=== PATIENT | female | born 1960 | race African-American/Black ===

== ENCOUNTER 2016-11-27 13:22 | Emergency (ER) | payer MEDICAID ==
[~2016-11-27] VITALS: Ht 157.5 cm; Wt 119.3 kg
[~2016-11-27 13:22] MED LIST: ALBUAER3 IN; ASP81EC PO; BACL20TA; CHOL10006; FLUT110A INH; Furosemide BC; GABA300C8; IMIP50TA27; Insulin Detemir SC; LORA-205; LORA10CA7; METO50TA7 PO; MORP1CAP31; SIMV-13; ZOLP10TA6
[2016-11-27 13:29] VITALS: BP 189/77
[2016-11-27 15:28] LABS: Basophils # (auto) 0 uL; Basophils % (auto) 0.5 % (0.0-2.0); Eosinophils # (auto) 0.1 uL; Hematocrit 39.8 % (36.0-46.0); Hemoglobin 12.8 g/dL (12.2-16.2); Lymphocytes % (auto) 45.8 % (10.0-50.0); Mean Corpuscular Hgb Conc. 32.1 g/dL (32.0-36.0); Mean Corpuscular Volume 84.1 fL (80.0-100.0); Mean Platelet Volume 9.9 fL (7.4-10.4); Monocytes # (auto) 0.6 uL; Neutrophils # (auto) 2.8 uL; Neutrophils % (auto) 42.7 % (37.0-80.0); Platelet Count (auto) 255 10^3/uL (140-450); Red Cell Distribution Width 14.3 % (11.6-16.0); White Blood Cell 6.5 10^3/uL (4.4-10.8)
[2016-11-27 15:33] LABS: INR 1.07 (0.9-1.15); Partial Thromboplastin Time 27.7 sec (22.64-33.71)
[2016-11-27 15:40] LABS: Albumin 3.2 g/dL (3.4-5.0); Calcium 9.5 mg/dL (8.5-10.1); Potassium 4.1 mmol/L (3.5-5.1)
[2016-11-27 15:43] LABS: Bilirubin, Total 0.9 mg/dL (0.2-1.0)
== END 2016-11-27 21:00 | disposition left against medical advice (07) ==
LOC: ER 13:23
DX: R51 Headache (principal); M25.562 Pain in left knee; Z53.21 Procedure and treatment not carried out due to patient leaving prior to being seen by health care provider; W18.39XA Other fall on same level, initial encounter; Y93.89 Activity, other specified; Y99.8 Other external cause status; Y92.89 Other specified places as the place of occurrence of the external cause
CPT/HCPCS: 36415; 70450; 72125; 73562; 80053; 85025; 85610; 85730; 93005

== ENCOUNTER 2017-05-06 16:25 | Emergency (ER) | payer MEDICAID ==
[~2017-05-06] VITALS: Ht 157.5 cm; Wt 115.2 kg
[~2017-05-06 16:25] MED LIST changes: +GABA-497; -GABA300C8
[2017-05-06 16:35] VITALS: BP 112/63
[2017-05-06] MEDS ORDERED: KETOROLAC TROMETH 60MG/2ML VIAL IM ONE (17:45)
== END 2017-05-06 18:13 | disposition home or self-care (01) ==
LOC: ER 16:29
DX: G89.29 Other chronic pain (principal); M54.40 Lumbago with sciatica, unspecified side; D17.21 Benign lipomatous neoplasm of skin and subcutaneous tissue of right arm; I11.0 Hypertensive heart disease with heart failure; I50.9 Heart failure, unspecified; J44.9 Chronic obstructive pulmonary disease, unspecified; E78.5 Hyperlipidemia, unspecified; Z90.49 Acquired absence of other specified parts of digestive tract; Z79.82 Long term (current) use of aspirin; Z79.4 Long term (current) use of insulin
CPT/HCPCS: 96372; 99283; J1885

== ENCOUNTER 2018-05-09 14:58 | Emergency (ER) | payer MEDICAID ==
[~2018-05-09] VITALS: Ht 157.5 cm; Wt 112.5 kg
[~2018-05-09 14:58] MED LIST changes: -GABA-497; +GABA300C10; +MET5XLT PO; -METO50TA7 PO
[2018-05-09] MEDS ORDERED: cloNIDine HCL 0.1 MG TAB PO ONE (16:15)
[2018-05-09] MEDS ORDERED: HYDROcodone-ACET 10/325MG TAB PO ONE (17:45)
[2018-05-09 17:59] LABS: Urine Bacteria FEW /hpf (None Seen); Urine Blood 2+ /uL (Negative); Urine Hyaline Cast MOD /lpf (0 - 2); Urine Specific Gravity 1.006 (1.001-1.035); Urine WBC 6 /hpf (0 - 5)
[2018-05-09 18:00] LABS: Basophils # (auto) 0.1 uL; Basophils % (auto) 0.8 % (0.0-2.0); Eosinophils # (auto) 0.4 uL; Eosinophils % (auto) 4.7 % (0.0-7.0); Hematocrit 42.1 % (36.0-46.0); Hemoglobin 13.7 g/dL (12.2-16.2); Lymphocytes % (auto) 48.1 % (10.0-50.0); Mean Corpuscular Hemoglobin 27.2 pg (28.0-32.0); Mean Corpuscular Hgb Conc. 32.4 g/dL (32.0-36.0); Mean Corpuscular Volume 83.9 fL (80.0-100.0); Monocytes # (auto) 0.8 uL; Monocytes % (auto) 9.8 % (0.0-12.0); Neutrophils # (auto) 3.1 uL; Neutrophils % (auto) 36.6 % (37.0-80.0); Nucleated Red Blood Cells % 0.1 %; Platelet Count (auto) 272 10^3/uL (140-450); Red Blood Cells 5.02 10^6/uL (4.0-5.20); Red Cell Distribution Width 13.2 % (11.8-14.3); White Blood Cell 8.4 10^3/uL (4.4-10.8)
[2018-05-09 18:21] LABS: Albumin 3.3 g/dL (3.4-5.0); BUN/Creatinine Ratio 9.8; Bilirubin, Total 1.1 mg/dL (0.2-1.0); Calcium 9.8 mg/dL (8.5-10.1); Potassium 3.9 mmol/L (3.5-5.1); Total Protein 9.3 g/dL (6.4-8.2)
[2018-05-09 19:02] VITALS: BP 112/60
== END 2018-05-09 19:03 | disposition home or self-care (01) ==
LOC: ER 15:03
DX: N39.0 Urinary tract infection, site not specified (principal); I11.0 Hypertensive heart disease with heart failure; I50.9 Heart failure, unspecified; J44.9 Chronic obstructive pulmonary disease, unspecified; E11.9 Type 2 diabetes mellitus without complications; E78.5 Hyperlipidemia, unspecified; I25.2 Old myocardial infarction; Z98.51 Tubal ligation status; Z90.49 Acquired absence of other specified parts of digestive tract; Z86.73 Personal history of transient ischemic attack (TIA), and cerebral infarction without residual deficits
CPT/HCPCS: 36415; 80053; 81001; 85025; 94761

== ENCOUNTER 2018-08-02 13:09 | Inpatient (IN) | payer MEDICAID ==
[~2018-08-02] VITALS: Ht 157.5 cm; Wt 102.2 kg
[~2018-08-02 13:09] MED LIST changes: +ASPI81TA27 PO; +ATOR10TA52 PO; +ATOR1TAB PO; -BACL20TA; -CHOL10006; +CHOL20007 PO; +CYCL1TAB18 PO; +FLU220IH INH; +FURO40TA4 PO; -Furosemide BC; +GABA-339 PO; -GABA300C10; -IMIP50TA27; +INSLANTI SC; +INSREG3 SC; -Insulin Detemir SC; +LISI40TA PO; -LORA-205; -LORA10CA7; +METO-158 PO; +MORP15TA PO; -MORP1CAP31; +MORP60TA25 PO; +NITR0.4S29 SL; +OMEG306C OR; +PANT40TA2 PO; +POTA10TA51 PO; +SENN1TAB14 PO; -SIMV-13; +SUCR1TAB PO; -ZOLP10TA6
[2018-08-02 14:50] LABS: Eosinophils # (auto) 0 uL; Hematocrit 42.7 % (36.0-46.0); Lymphocytes # (auto) 2.7 uL; Monocytes # (auto) 0.7 uL; Neutrophils # (auto) 3.7 uL
[2018-08-02 14:52] LABS: Basophils # (auto) 0 uL; Basophils % (auto) 0.7 % (0.0-2.0); Eosinophils % (auto) 0.1 % (0.0-7.0); Hemoglobin 13.8 g/dL (12.2-16.2); Lymphocytes % (auto) 37.7 % (10.0-50.0); Mean Corpuscular Hemoglobin 26.8 pg (28.0-32.0); Mean Corpuscular Hgb Conc. 32.3 g/dL (32.0-36.0); Mean Corpuscular Volume 82.9 fL (80.0-100.0); Monocytes % (auto) 9.4 % (0.0-12.0); Neutrophils % (auto) 52.1 % (37.0-80.0); Nucleated Red Blood Cells % 0.1 %; Platelet Count (auto) 263 10^3/uL (140-450); Red Blood Cells 5.15 10^6/uL (4.0-5.20); Red Cell Distribution Width 13.9 % (11.8-14.3); White Blood Cell 7.2 10^3/uL (4.4-10.8)
[2018-08-02] MEDS ORDERED: cefTRIAXone 1GM/50ML D5W 50 ML IV ONE (15:00)
[2018-08-02 15:06] LABS: Albumin 3.3 g/dL (3.4-5.0); BUN/Creatinine Ratio 9.7; Calcium 9.7 mg/dL (8.5-10.1); Potassium 3.3 mmol/L (3.5-5.1)
[2018-08-02 15:09] LABS: Bilirubin, Total 1.2 mg/dL (0.2-1.0); Total Protein 9.3 g/dL (6.4-8.2)
[2018-08-02] MEDS ORDERED: ONDANSETRON HCL 4 MG/2 ML VIAL ONE (15:43)
[2018-08-02] MEDS ORDERED: ONDANSETRON HCL 4 MG/2 ML VIAL IV ONE ×2 (15:45→18:00)
[2018-08-02] MEDS ORDERED: SODIUM CHLORIDE 0.9% 1,000 ML IV ONE ×2 (15:45→17:47)
[2018-08-02] MEDS ORDERED: POTASSIUM EFFERVESENT TAB 25 MEQ PO ONE (16:30)
[2018-08-02] MEDS ORDERED: DIPHENOXYLATE W/ATROPINE 2.5 MG TAB PO ONE (18:00)
[2018-08-02] MEDS ORDERED: VANCOMYCIN PER PHARMACY 0 MG IV SCH (18:30)
[2018-08-02] MEDS ORDERED: PANTOPRAZOLE 40 MG/10 ML VIAL IV ONE (18:30)
[2018-08-02] MEDS ORDERED: DEXTROSE (50%) 50ML SYRG IV PRN (18:30)
[2018-08-02] MEDS ORDERED: FAMOTIDINE (10MG/ML) 2ML VL IV ONE (18:30)
[2018-08-02] MEDS ORDERED: ACETAMINOPHEN 325 MG TAB PO PRN (18:45)
[2018-08-02] MEDS ORDERED: HYDROcodone-ACET 5/325MG TAB PO PRN (18:45)
[2018-08-02] MEDS ORDERED: SODIUM CHLORIDE 0.9% 3,000 ML IV ONE (18:45)
[2018-08-02] MEDS ORDERED: NITROGLYCERIN 0.4 MG SL TAB SL PRN (18:45)
[2018-08-02] MEDS ORDERED: MORPHINE SULFATE 4 MG/ML SYR/VIAL IV PRN (18:45)
[2018-08-02] MEDS ORDERED: TEMAZEPAM 15 MG CAP PO PRN (18:45)
[2018-08-02 19:41] LABS: Lactic Acid w/Reflex 2.8 mmol/L (0.4-2.0)
[2018-08-02] MEDS ORDERED: VANCOMYCIN 1GM/250ML 250 ML IV SCH (20:00)
[2018-08-02 20:07] VITALS: BP 152/79
[2018-08-02] MEDS: MORPHINE SULFATE 4 MG/ML SYR/VIAL IV PRN (20:28)
[2018-08-02] MEDS: SODIUM CHLORIDE 0.9% 1,000 ML IV SCH (20:28)
[2018-08-02 21:26] LABS: Urine Bacteria NONE SEEN /hpf (None Seen); Urine Blood Negative /uL (Negative); Urine Hyaline Cast FEW /lpf (0 - 2); Urine Specific Gravity 1.011 (1.001-1.035); Urine WBC 5 /hpf (0 - 5)
[2018-08-02] MEDS: IPRATROPIUM BROM 0.5 MG/2.5ML INH SOL NEB SCH (22:06)
[2018-08-02] MEDS: ALBUTEROL SULF 2.5 MG/0.5ML(0.5%) NEB SOLN NEB SCH (22:06)
[2018-08-02 22:10] VITALS: BP 130/69
[2018-08-02] MEDS: ACCU-CHEK COMFORT CURVE STRIP VI SCH (22:20)
[2018-08-02] MEDS: INSULIN LANTUS (GLARGINE) 1 /0.01ml (100units/ml) SC SCH (22:21)
[2018-08-02] MEDS: InsuLIN REG 1unit/0.01ml Soln (100units/ml) SC SCH (22:27)
[2018-08-03] MEDS: MORPHINE SULFATE 4 MG/ML SYR/VIAL IV PRN ×5 (01:44→21:27)
[2018-08-03] MEDS: IPRATROPIUM BROM 0.5 MG/2.5ML INH SOL NEB SCH ×6 (02:09→21:56)
[2018-08-03] MEDS: ALBUTEROL SULF 2.5 MG/0.5ML(0.5%) NEB SOLN NEB SCH ×6 (02:09→21:55)
[2018-08-03] MEDS: SODIUM CHLORIDE 0.9% 1,000 ML IV SCH ×3 (02:56→20:00)
[2018-08-03 05:00] VITALS: BP 127/78
[2018-08-03 05:45] LABS: Basophils # (auto) 0 uL; Basophils % (auto) 0.3 % (0.0-2.0); Eosinophils # (auto) 0.1 uL; Eosinophils % (auto) 1.1 % (0.0-7.0); Hematocrit 36.1 % (36.0-46.0); Hemoglobin 11.7 g/dL (12.2-16.2); Lymphocytes # (auto) 5.1 uL; Lymphocytes % (auto) 51.6 % (10.0-50.0); Mean Corpuscular Hemoglobin 27.2 pg (28.0-32.0); Mean Corpuscular Hgb Conc. 32.4 g/dL (32.0-36.0); Monocytes # (auto) 1.2 uL; Neutrophils # (auto) 3.4 uL; Platelet Count (auto) 221 10^3/uL (140-450); Red Blood Cells 4.31 10^6/uL (4.0-5.20); Red Cell Distribution Width 13.5 % (11.8-14.3); White Blood Cell 9.8 10^3/uL (4.4-10.8)
[2018-08-03] MEDS: INSULIN LISPRO (HUMAN) 100 UNITS/ML ML SC SCH ×2 (05:50→06:28)
[2018-08-03 06:00] LABS: Albumin 2.6 g/dL (3.4-5.0); Calcium 8.3 mg/dL (8.5-10.1)
[2018-08-03 06:02] LABS: BUN/Creatinine Ratio 9.5
[2018-08-03 06:07] LABS: Bilirubin, Total 0.9 mg/dL (0.2-1.0); Total Protein 7.3 g/dL (6.4-8.2)
[2018-08-03 06:08] LABS: Lactic Acid w/Reflex 2.1 mmol/L (0.4-2.0)
[2018-08-03] MEDS: ACCU-CHEK COMFORT CURVE STRIP VI SCH ×4 (06:13→22:34)
[2018-08-03] MEDS: InsuLIN REG 1unit/0.01ml Soln (100units/ml) SC SCH ×4 (06:13→17:00)
[2018-08-03 06:17] LABS: Potassium 2.6 mmol/L (3.5-5.1)
[2018-08-03] MEDS ORDERED: POTASSIUM CHL 20 Meq TABLET PO ONE ×2 (06:30→16:00)
[2018-08-03] MEDS: ONDANSETRON HCL 4 MG/2 ML VIAL IV PRN ×2 (07:56→14:55)
[2018-08-03 09:00] VITALS: BP 131/72
[2018-08-03] MEDS: cefTRIAXone 1GM/50ML D5W 50 ML IV SCH (09:54)
[2018-08-03] MEDS: INSULIN GLARGINE SC SCH (09:54)
[2018-08-03] MEDS: MULTIPLE VITAMIN TAB PO SCH (09:54)
[2018-08-03] MEDS ORDERED: PANTOPRAZOLE 40 MG/10 ML VIAL IV SCH ×2 (10:00→22:00)
[2018-08-03 13:00] VITALS: BP 121/80
[2018-08-03] MEDS: VANCOMYCIN 1,250 MG in D5W 5% 250 ML IV SCH (14:54)
[2018-08-03 17:00] VITALS: BP 155/75
[2018-08-03 22:00] VITALS: BP 162/71
[2018-08-03] MEDS ORDERED: FAMOTIDINE (10MG/ML) 2ML VL IV SCH (22:00)
[2018-08-03] MEDS: INSULIN LANTUS (GLARGINE) 1 /0.01ml (100units/ml) SC SCH (22:34)
[2018-08-04] MEDS: ALBUTEROL SULF 2.5 MG/0.5ML(0.5%) NEB SOLN NEB SCH ×6 (02:09→22:29)
[2018-08-04] MEDS: IPRATROPIUM BROM 0.5 MG/2.5ML INH SOL NEB SCH ×6 (02:09→22:29)
[2018-08-04] MEDS: SODIUM CHLORIDE 0.9% 1,000 ML IV SCH ×3 (04:00→20:36)
[2018-08-04 05:00] VITALS: BP 149/81
[2018-08-04] MEDS: MORPHINE SULFATE 4 MG/ML SYR/VIAL IV PRN ×3 (05:05→20:33)
[2018-08-04 05:11] LABS: Basophils # (auto) 0 uL; Basophils % (auto) 0.7 % (0.0-2.0); Eosinophils # (auto) 0.2 uL; Eosinophils % (auto) 3.9 % (0.0-7.0); Hematocrit 39.3 % (36.0-46.0); Hemoglobin 12.6 g/dL (12.2-16.2); Lymphocytes # (auto) 2.4 uL; Mean Corpuscular Volume 84.3 fL (80.0-100.0); Monocytes # (auto) 0.9 uL; Monocytes % (auto) 14.3 % (0.0-12.0); Neutrophils # (auto) 2.5 uL; Neutrophils % (auto) 42.1 % (37.0-80.0); Platelet Count (auto) 218 10^3/uL (140-450); Red Blood Cells 4.66 10^6/uL (4.0-5.20); Red Cell Distribution Width 13.8 % (11.8-14.3)
[2018-08-04 05:30] LABS: BUN/Creatinine Ratio 4.1; Calcium 8.9 mg/dL (8.5-10.1); INR 1.01 (0.9-1.15); Partial Thromboplastin Time 28.8 sec (23.78-33.04); Potassium 3.4 mmol/L (3.5-5.1); Prothrombin Time 10.8 sec (9.27-12.13)
[2018-08-04] MEDS: InsuLIN REG 1unit/0.01ml Soln (100units/ml) SC SCH ×4 (05:50→22:00)
[2018-08-04] MEDS: ACCU-CHEK COMFORT CURVE STRIP VI SCH ×4 (05:50→22:30)
[2018-08-04 06:44] LABS: Phosphorus 1.9 mg/dL (2.5-4.90)
[2018-08-04 08:26] VITALS: BP 124/84
[2018-08-04] MEDS ORDERED: ePHEDrine SULFATE 50 MG/ML AMP IV PRN (08:45)
[2018-08-04] MEDS ORDERED: ONDANSETRON HCL 4 MG/2 ML VIAL IV ONE (08:45)
[2018-08-04] MEDS ORDERED: HYDROmorphone HCL 2 MG/ML VL IV PRN (08:45)
[2018-08-04] MEDS ORDERED: MIDAZOLAM HCL 1MG/1ML-2 ML VIAL IV PRN (08:45)
[2018-08-04] MEDS ORDERED: LABETALOL HCL 5 MG/ML 4ML SYRINGE IV PRN (08:45)
[2018-08-04] MEDS ORDERED: ACCU-CHEK COMFORT CURVE STRIP VI ONE (08:45)
[2018-08-04] MEDS ORDERED: KETOROLAC TROMETH 30 MG/ML 1ML VIAL IV ONE (08:45)
[2018-08-04] MEDS ORDERED: MIDAZOLAM HCL 1MG/1ML-2 ML VIAL ONE (08:48)
[2018-08-04] MEDS ORDERED: fentaNYL CITRATE 100 MCG/2 ML VL ONE (08:48)
[2018-08-04] MEDS ORDERED: DEXAMETHASONE SOD PHOS 10MG/1ML VIAL INJ ONE (08:49)
[2018-08-04] MEDS ORDERED: PROPOFOL 10 MG/ML 20 ML IV ONE (08:50)
[2018-08-04] MEDS: VANCOMYCIN 1,250 MG in D5W 5% 250 ML IV SCH (09:40)
[2018-08-04] MEDS ORDERED: MORPHINE SULFATE 4 MG/ML SYR/VIAL IV ONE (10:00)
[2018-08-04] MEDS: INSULIN GLARGINE SC SCH (10:00)
[2018-08-04] MEDS: PANTOPRAZOLE 40 MG TAB PO SCH ×2 (10:12→22:00)
[2018-08-04] MEDS: MULTIPLE VITAMIN TAB PO SCH (10:12)
[2018-08-04 11:26] VITALS: BP 133/78
[2018-08-04] MEDS: cefTRIAXone 1GM/50ML D5W 50 ML IV SCH (11:33)
[2018-08-04] MEDS ORDERED: PROMETHAZINE HCL 25 MG/ML 1ML ONE (16:19)
[2018-08-04 17:16] VITALS: BP 131/69
[2018-08-04 21:46] VITALS: BP 101/64
[2018-08-04] MEDS: INSULIN LANTUS (GLARGINE) 1 /0.01ml (100units/ml) SC SCH (22:00)
[2018-08-05] MEDS: MORPHINE SULFATE 4 MG/ML SYR/VIAL IV PRN ×3 (01:05→17:06)
[2018-08-05] MEDS: HYOSCYAMINE SULF 0.125 MG ODT TAB PO PRN ×2 (01:05→17:06)
[2018-08-05] MEDS: IPRATROPIUM BROM 0.5 MG/2.5ML INH SOL NEB SCH ×5 (02:00→19:14)
[2018-08-05] MEDS: ALBUTEROL SULF 2.5 MG/0.5ML(0.5%) NEB SOLN NEB SCH ×5 (02:00→19:14)
[2018-08-05 02:28] LABS: Basophils # (auto) 0.1 uL; Eosinophils # (auto) 0 uL
[2018-08-05 02:34] LABS: Basophils % (auto) 0.7 % (0.0-2.0); Hematocrit 37.2 % (36.0-46.0); Lymphocytes # (auto) 3.1 uL; Lymphocytes % (auto) 23.3 % (10.0-50.0); Mean Corpuscular Hemoglobin 26.4 pg (28.0-32.0); Mean Corpuscular Hgb Conc. 32.2 g/dL (32.0-36.0); Mean Corpuscular Volume 81.8 fL (80.0-100.0); Monocytes # (auto) 1.5 uL; Monocytes % (auto) 11.4 % (0.0-12.0); Neutrophils # (auto) 8.7 uL; Neutrophils % (auto) 64.6 % (37.0-80.0); Nucleated Red Blood Cells % 0.2 %; Platelet Count (auto) 218 10^3/uL (140-450); Red Blood Cells 4.55 10^6/uL (4.0-5.20); Red Cell Distribution Width 13.7 % (11.8-14.3); White Blood Cell 13.5 10^3/uL (4.4-10.8)
[2018-08-05 03:03] LABS: BUN/Creatinine Ratio 6.5; Calcium 8.9 mg/dL (8.5-10.1); Potassium 3.9 mmol/L (3.5-5.1)
[2018-08-05] MEDS: SODIUM CHLORIDE 0.9% 1,000 ML IV SCH ×2 (03:20→13:16)
[2018-08-05] MEDS: INSULIN LISPRO (HUMAN) 100 UNITS/ML ML SC SCH (06:18)
[2018-08-05] MEDS: ACCU-CHEK COMFORT CURVE STRIP VI SCH ×3 (06:19→17:06)
[2018-08-05] MEDS: InsuLIN REG 1unit/0.01ml Soln (100units/ml) SC SCH ×3 (06:19→17:14)
[2018-08-05 08:54] VITALS: BP 124/69
[2018-08-05] MEDS: MULTIPLE VITAMIN TAB PO SCH (09:52)
[2018-08-05] MEDS: PANTOPRAZOLE 40 MG TAB PO SCH (09:52)
[2018-08-05] MEDS: INSULIN GLARGINE SC SCH (09:52)
[2018-08-05] MEDS: PROMETHAZINE HCL 25 MG/ML 1ML IV PRN ×2 (09:53→17:06)
[2018-08-05 12:54] VITALS: BP 133/70
[2018-08-05 16:42] VITALS: BP 112/84
[2018-08-05 18:53] VITALS: BP 112/84
== END 2018-08-05 20:30 | disposition home health service (06) | DRG 241 ==
LOC: ER 13:14 → MERGE 18:39 → TELE 18:39 → TELE-WESTW 21:52
PROVIDERS: ADMIT Internal Medicine; ATTEND Internal Medicine
PROC: 0DB68ZX Excision of Stomach, Via Natural or Artificial Opening Endoscopic, Diagnostic (ICD-10-PCS; principal; 2018-08-04 08:28)
DX: K29.00 Acute gastritis without bleeding (principal); N17.0 Acute kidney failure with tubular necrosis; J44.0 Chronic obstructive pulmonary disease with (acute) lower respiratory infection; E11.21 Type 2 diabetes mellitus with diabetic nephropathy; J45.901 Unspecified asthma with (acute) exacerbation; E66.01 Morbid (severe) obesity due to excess calories; E87.1 Hypo-osmolality and hyponatremia; I50.9 Heart failure, unspecified; I13.0 Hypertensive heart and chronic kidney disease with heart failure and stage 1 through stage 4 chronic kidney disease, or unspecified chronic kidney disease; N18.3 Chronic kidney disease, stage 3 (moderate); J44.1 Chronic obstructive pulmonary disease with (acute) exacerbation; K52.9 Noninfective gastroenteritis and colitis, unspecified; E11.22 Type 2 diabetes mellitus with diabetic chronic kidney disease; E87.6 Hypokalemia; E78.5 Hyperlipidemia, unspecified; J20.9 Acute bronchitis, unspecified; E86.0 Dehydration; K57.30 Diverticulosis of large intestine without perforation or abscess without bleeding; Z90.49 Acquired absence of other specified parts of digestive tract; Z98.51 Tubal ligation status; Z79.899 Other long term (current) drug therapy; Z79.82 Long term (current) use of aspirin; Z79.4 Long term (current) use of insulin; Z68.41 Body mass index [BMI] 40.0-44.9, adult
CPT/HCPCS: 36415; 71046; 74176; 80048; 80053; 80202; 81001; 82962; 83036; 83605; 83735; 83880; 84100; 84132; 84443; 85025; 85610; 85730; 86850; 86900; 86901; 87040; 87086; 87804; 93005; 94640; 94660; 94761; 96361; 96365; 96375; C9113; G0378; J0696; J1100; J1815; J1885; J2250; J2405; J2704; J3490; J7060

== ENCOUNTER 2019-10-25 11:06 | Day surgery (SDC) | payer MEDICAID ==
[~2019-10-25] VITALS: Ht 157.5 cm; Wt 125.6 kg
[~2019-10-25 11:06] MED LIST changes: -ALBUAER3 IN; -ASP81EC PO; +ASPI-404 PO; -ASPI81TA27 PO; -ATOR10TA52 PO; -CHOL20007 PO; -FLUT110A INH; +IBUP600T27 PO; -INSLANTI SC; -INSREG3 SC; +INSU1INJ19 SC; -MET5XLT PO; -METO-158 PO; +METO-159 PO; -MORP15TA PO; -MORP60TA25 PO; -NITR0.4S29 SL; -OMEG306C OR; +OMEP20TA PO; +OXYC325T14 PO; -PANT40TA2 PO; -SUCR1TAB PO
[2019-10-25] MEDS ORDERED: SODIUM CHL 0.9% 0 ML ONE (12:21)
[2019-10-25] MEDS ORDERED: fentaNYL CITRATE 100 MCG/2 ML VL ONE (12:21)
[2019-10-25] MEDS ORDERED: VERAPAMIL 2.5MG/ML INJ 2ML VIAL IV ONE (12:21)
[2019-10-25] MEDS ORDERED: MIDAZOLAM HCL 1MG/1ML-2 ML VIAL ONE (12:21)
[2019-10-25] MEDS ORDERED: ANGIOMAX 250 MG VIAL IV ONE (12:21)
[2019-10-25] MEDS ORDERED: IODIXANOL 320MG/ML 100ML BTL IV ONE (12:22)
[2019-10-25] MEDS ORDERED: LIDOCAINE 2%HCL (LOCAL ANESTH.) INJ 20ML MDV ONE (12:22)
[2019-10-25] MEDS ORDERED: HEPARIN SODIUM (PORCINE) 5000 UNITS/ML 1ML VIAL ONE (12:58)
[2019-10-25] MEDS ORDERED: ACETAMINOPHEN 500 MG TAB PO PRN (13:30)
[2019-10-25] MEDS ORDERED: ONDANSETRON HCL 4 MG/2 ML VIAL IV PRN (13:30)
[2019-10-25] MEDS ORDERED: HYDROcodone-ACET 5/325MG TAB PO PRN (13:30)
== END 2019-10-25 15:05 | disposition home or self-care (01) ==
LOC: CATH 11:06
PROVIDERS: ATTEND Internal Medicine
DX: R07.9 Chest pain, unspecified (principal); R06.02 Shortness of breath; I10 Essential (primary) hypertension; E11.9 Type 2 diabetes mellitus without complications; J45.909 Unspecified asthma, uncomplicated; C53.9 Malignant neoplasm of cervix uteri, unspecified; G47.30 Sleep apnea, unspecified; E78.00 Pure hypercholesterolemia, unspecified; Z79.899 Other long term (current) drug therapy; Z79.82 Long term (current) use of aspirin
CPT/HCPCS: 93005; 93454; C1894; J1644; J2250; J3010; Q9967; 99152

== ENCOUNTER 2019-11-07 12:32 | Emergency (ER) | payer MEDICAID ==
[~2019-11-07] VITALS: Ht 157.5 cm; Wt 123.8 kg
[2019-11-07 16:28] VITALS: BP 153/92
[2019-11-07] MEDS ORDERED: cefTRIAXone SOD 1,000 MG VL IM ONE (16:30)
[2019-11-07] MEDS ORDERED: LIDOCAINE 1% HCL (LOCAL ANESTH.) INJ 20ML MDV ONE (16:46)
== END 2019-11-07 17:18 | disposition home or self-care (01) ==
LOC: ER 12:32
DX: J03.90 Acute tonsillitis, unspecified (principal); I11.0 Hypertensive heart disease with heart failure; I50.9 Heart failure, unspecified; J44.9 Chronic obstructive pulmonary disease, unspecified; E11.9 Type 2 diabetes mellitus without complications; E78.5 Hyperlipidemia, unspecified; I25.2 Old myocardial infarction; Z86.73 Personal history of transient ischemic attack (TIA), and cerebral infarction without residual deficits; Z77.22 Contact with and (suspected) exposure to environmental tobacco smoke (acute) (chronic); Z79.899 Other long term (current) drug therapy; Z79.82 Long term (current) use of aspirin
CPT/HCPCS: 96372; 99283; J0696; J2001

== ENCOUNTER 2020-04-30 17:29 | Emergency (ER) | payer MEDICAID ==
[~2020-04-30] VITALS: Ht 157.5 cm; Wt 128.8 kg
[~2020-04-30 17:29] MED LIST changes: -ASPI-404 PO; +ASPI-543 PO; +CYCL10TA6 PO; -CYCL1TAB18 PO; -LISI40TA PO; +LISI40TA11 PO
[2020-04-30 18:03] VITALS: BP 141/51
[2020-04-30 19:54] LABS: Urine Bacteria NONE SEEN /hpf (None Seen); Urine Blood 3+ /uL (Negative); Urine Specific Gravity 1.017 (1.001-1.035); Urine WBC 393 /hpf (0 - 5); Urine WBC Clumps PRESENT /hpf (None Seen)
== END 2020-04-30 21:37 | disposition home or self-care (01) ==
LOC: ER 17:29
DX: N39.0 Urinary tract infection, site not specified (principal); I11.0 Hypertensive heart disease with heart failure; I50.9 Heart failure, unspecified; J44.9 Chronic obstructive pulmonary disease, unspecified; E11.9 Type 2 diabetes mellitus without complications; I25.2 Old myocardial infarction; Z86.73 Personal history of transient ischemic attack (TIA), and cerebral infarction without residual deficits; Z90.49 Acquired absence of other specified parts of digestive tract; Z90.89 Acquired absence of other organs; Z98.51 Tubal ligation status; Z90.710 Acquired absence of both cervix and uterus; Z77.22 Contact with and (suspected) exposure to environmental tobacco smoke (acute) (chronic); Z79.899 Other long term (current) drug therapy; Z79.82 Long term (current) use of aspirin
CPT/HCPCS: 74176; 81001

== ENCOUNTER 2020-08-01 06:22 | Emergency (ER) | payer MEDICAID ==
[~2020-08-01] VITALS: Ht 165.1 cm; Wt 104.3 kg
[2020-08-01] MEDS ORDERED: ONDANSETRON HCL 4 MG/2 ML VIAL IV ONE (07:30)
[2020-08-01] MEDS ORDERED: MORPHINE SULFATE 4 MG/ML SYR/VIAL IV ONE (07:30)
[2020-08-01] MEDS ORDERED: cloNIDine HCL 0.1 MG TAB PO ONE (07:30)
[2020-08-01 09:20] VITALS: BP 166/128
[2020-08-01 10:59] LABS: Basophils # (auto) 0 10 ^3/uL (0-0.2); Eosinophils # (auto) 0.2 10 ^3/uL (0-0.8); Hemoglobin 11.1 g/dL (12.2-16.2); Mean Corpuscular Volume 80.8 fL (80.0-100.0); Monocytes # (auto) 0.9 10 ^3/uL (0-1.3)
[2020-08-01 11:00] LABS: Basophils % (auto) 0.6 % (0.0-2.0); Eosinophils % (auto) 2.1 % (0.0-7.0); Lymphocytes # (auto) 2.8 10 ^3/uL (0.4-5.4); Lymphocytes % (auto) 35.8 % (10.0-50.0); Mean Corpuscular Hgb Conc. 30.9 g/dL (32.0-36.0); Monocytes % (auto) 11.4 % (0.0-12.0); Neutrophils # (auto) 3.9 10 ^3/uL (1.6-8.6); Neutrophils % (auto) 50.1 % (37.0-80.0); Platelet Count (auto) 275 10^3/uL (140-450); Red Blood Cells 4.45 10^6/uL (4.0-5.20); Red Cell Distribution Width 14.9 % (11.8-14.3); White Blood Cell 7.7 10^3/uL (4.4-10.8)
[2020-08-01 11:19] LABS: Anion Gap 8 (5-15); Blood Urea Nitrogen 11 mg/dL (7-18); Calcium 9.1 mg/dL (8.5-10.1); Carbon Dioxide 26 mmol/L (21-32); Chloride 101 mmol/L (98-107); Glucose 137 mg/dL (74-106); Potassium 3.5 mmol/L (3.5-5.1); Sodium 135 mmol/L (136-145)
[2020-08-01 11:20] LABS: INR 1.04 (0.9-1.15)
[2020-08-01 11:25] LABS: Alanine Aminotransferase 20 U/L (13-56); Alkaline Phosphatase 121 U/L (45-117); Aspartate Aminotransferase 10 U/L (15-37); BUN/Creatinine Ratio 9.6; Bilirubin, Total 0.5 mg/dL (0.2-1.0); GFR African American 62 mL/min; GFR Non-African American 51 mL/min; Total Protein 8.4 g/dL (6.4-8.2)
== END 2020-08-01 16:05 | disposition home or self-care (01) ==
LOC: EDSEX 06:22 → EDUNIT# 06:22 → ER 06:22 → EDBD 06:22 → ER 16:05
DX: S42.91XA Fracture of right shoulder girdle, part unspecified, initial encounter for closed fracture (principal); I11.0 Hypertensive heart disease with heart failure; I50.9 Heart failure, unspecified; E11.9 Type 2 diabetes mellitus without complications; E78.5 Hyperlipidemia, unspecified; I25.2 Old myocardial infarction; R51.9 Headache, unspecified; M54.2 Cervicalgia; Z86.73 Personal history of transient ischemic attack (TIA), and cerebral infarction without residual deficits; Z90.49 Acquired absence of other specified parts of digestive tract; Z98.51 Tubal ligation status; Z90.710 Acquired absence of both cervix and uterus; Z77.22 Contact with and (suspected) exposure to environmental tobacco smoke (acute) (chronic); W18.39XA Other fall on same level, initial encounter; Y93.89 Activity, other specified; Y92.89 Other specified places as the place of occurrence of the external cause; Y99.8 Other external cause status
CPT/HCPCS: 36415; 70450; 72125; 72170; 73030; 80053; 84484; 85025; 85610; 85730; 96374; 96375; 99285; J2270; J2405

== ENCOUNTER 2020-08-17 11:50 | Inpatient (IN) | payer MEDICAID ==
[~2020-08-17] VITALS: Ht 160 cm; Wt 119.1 kg
[2020-08-17 13:44] LABS: Basophils # (auto) 0 10 ^3/uL (0-0.2); Eosinophils # (auto) 0 10 ^3/uL (0-0.8); Nucleated Red Blood Cells % 0.1 %
[2020-08-17 13:45] LABS: Basophils % (auto) 0.1 % (0.0-2.0); Eosinophils % (auto) 0.1 % (0.0-7.0); Hematocrit 39.1 % (36.0-46.0); Hemoglobin 12.5 g/dL (12.2-16.2); Lymphocytes # (auto) 0.7 10 ^3/uL (0.4-5.4); Lymphocytes % (auto) 15.9 % (10.0-50.0); Mean Corpuscular Hgb Conc. 31.9 g/dL (32.0-36.0); Mean Corpuscular Volume 78.4 fL (80.0-100.0); Monocytes # (auto) 0.5 10 ^3/uL (0-1.3); Monocytes % (auto) 11.9 % (0.0-12.0); Neutrophils # (auto) 3.3 10 ^3/uL (1.6-8.6); Platelet Count (auto) 209 10^3/uL (140-450); Red Blood Cells 4.99 10^6/uL (4.0-5.20); Red Cell Distribution Width 15.4 % (11.8-14.3); White Blood Cell 4.6 10^3/uL (4.4-10.8)
[2020-08-17 13:48] LABS: Urine Bacteria NONE SEEN /hpf (None Seen); Urine Blood 2+ /uL (Negative); Urine Hyaline Cast MANY /lpf (0 - 2); Urine Mucus FEW (None Seen); Urine Specific Gravity 1.025 (1.001-1.035); Urine WBC 4 /hpf (0 - 5)
[2020-08-17 13:56] LABS: Albumin 2.4 g/dL (3.4-5.0); BUN/Creatinine Ratio 11.2; Calcium 8.7 mg/dL (8.5-10.1); Potassium 3.2 mmol/L (3.5-5.1)
[2020-08-17 14:00] LABS: Bilirubin, Total 0.7 mg/dL (0.2-1.0); Total Protein 8.3 g/dL (6.4-8.2)
[2020-08-17] MEDS ORDERED: REMDESIVIR PER PHARMACY 0 ML IV SCH (16:15)
[2020-08-17] MEDS ORDERED: REMDESIVIR 200 MG in NS 210ml LOADING DOSE ADULT IV ONE (17:30)
[2020-08-17] MEDS ORDERED: ONDANSETRON HCL 4 MG/2 ML VIAL IV ONE (18:30)
[2020-08-17] MEDS ORDERED: DOXYCYCLINE 100MG/250ML 250 ML IV ONE (18:30)
[2020-08-17] MEDS ORDERED: MORPHINE SULF INJ 2 MG/ML SYRINGE 1ML IV ONE (18:30)
[2020-08-17] MEDS ORDERED: FUROSEMIDE 20 MG/2 ML VIAL IV ONE (19:30)
[2020-08-17] MEDS ORDERED: ONDANSETRON HCL 4 MG/2 ML VIAL IV PRN (19:30)
[2020-08-17] MEDS ORDERED: NITROGLYCERIN 0.4 MG SL TAB SL PRN (19:30)
[2020-08-17] MEDS ORDERED: POTASSIUM EFFERVESENT TAB 25 MEQ PO ONE (19:45)
[2020-08-17] MEDS: CARVEDILOL 3.125 MG TAB PO SCH (19:54)
[2020-08-17] MEDS: ACETAMINOPHEN 500 MG TAB PO PRN ×3 (19:58→21:37)
[2020-08-17] MEDS: MORPHINE SULF INJ 2 MG/ML SYRINGE 1ML IV PRN (20:46)
[2020-08-18] MEDS: ACETAMINOPHEN 500 MG TAB PO PRN (00:52)
[2020-08-18] MEDS: MORPHINE SULF INJ 2 MG/ML SYRINGE 1ML IV PRN (01:09)
[2020-08-18] MEDS: HYDROcodone-ACET 5/325MG TAB PO PRN ×2 (01:09→09:50)
[2020-08-18 05:27] LABS: Basophils # (auto) 0 10 ^3/uL (0-0.2); Eosinophils # (auto) 0 10 ^3/uL (0-0.8); Hematocrit 37.2 % (36.0-46.0); Neutrophils # (auto) 3.2 10 ^3/uL (1.6-8.6)
[2020-08-18 05:29] LABS: Basophils % (auto) 0.3 % (0.0-2.0); Hemoglobin 11.9 g/dL (12.2-16.2); Lymphocytes # (auto) 1.4 10 ^3/uL (0.4-5.4); Lymphocytes % (auto) 26.5 % (10.0-50.0); Monocytes # (auto) 0.6 10 ^3/uL (0-1.3); Monocytes % (auto) 11.7 % (0.0-12.0); Neutrophils % (auto) 61.5 % (37.0-80.0); Nucleated Red Blood Cells % 0.1 %; Platelet Count (auto) 225 10^3/uL (140-450); Red Blood Cells 4.77 10^6/uL (4.0-5.20); Red Cell Distribution Width 15.3 % (11.8-14.3); White Blood Cell 5.2 10^3/uL (4.4-10.8)
[2020-08-18 05:52] LABS: Albumin 2.2 g/dL (3.4-5.0); BUN/Creatinine Ratio 10.5; Bilirubin, Total 0.6 mg/dL (0.2-1.0); Calcium 8.7 mg/dL (8.5-10.1); Total Protein 7.9 g/dL (6.4-8.2)
[2020-08-18 06:46] LABS: INR 1.05 (0.9-1.15)
[2020-08-18] MEDS ORDERED: cefTRIAXone SOD 1,000 MG VL ONE (09:31)
[2020-08-18] MEDS: DexAMETHasone SOD PHOS 10MG/1ML VIAL INJ IV SCH (09:48)
[2020-08-18] MEDS: cefTRIAXone 1GM/50ML D5W 50 ML IV SCH (09:48)
[2020-08-18] MEDS: AZITHROMYCIN 500MG/D5WorNS 250ml IV SCH (09:49)
[2020-08-18] MEDS: ENOXAPARIN SOD 40 MG/0.4 ML SYRINGE SC SCH (09:49)
[2020-08-18] MEDS: FUROSEMIDE 20 MG/2 ML VIAL IV SCH (09:49)
[2020-08-18] MEDS: CHOLECALCIFEROL (VITD3) 2,000 UNIT CAP PO SCH (09:49)
[2020-08-18] MEDS: CARVEDILOL 3.125 MG TAB PO SCH ×3 (09:49→22:58)
[2020-08-18] MEDS: ASCORBIC ACID 1,000 MG TAB PO SCH (09:49)
[2020-08-18] MEDS: ZINC SULFATE 220mg CAP or TAB PO SCH (09:49)
[2020-08-18] MEDS: FAMOTIDINE 20 MG TAB PO SCH (09:49)
[2020-08-18] MEDS ORDERED: ENOXAPARIN SOD 60 MG/0.6 ML SYRINGE SC SCH (10:00)
[2020-08-18] MEDS: REMDESIVIR 100 MG in SODIUM CHL 0.9% 250 ML IV SCH (15:35)
[2020-08-19] MEDS: HYDROcodone-ACET 5/325MG TAB PO PRN ×2 (08:49→18:55)
[2020-08-19] MEDS: FAMOTIDINE 20 MG TAB PO SCH (10:00)
[2020-08-19] MEDS: CARVEDILOL 3.125 MG TAB PO SCH ×2 (10:00→21:45)
[2020-08-19] MEDS: CHOLECALCIFEROL (VITD3) 2,000 UNIT CAP PO SCH (10:00)
[2020-08-19] MEDS: cefTRIAXone 1GM/50ML D5W 50 ML IV SCH (10:00)
[2020-08-19] MEDS: ASCORBIC ACID 1,000 MG TAB PO SCH (10:00)
[2020-08-19] MEDS: ZINC SULFATE 220mg CAP or TAB PO SCH (10:00)
[2020-08-19] MEDS: DexAMETHasone SOD PHOS 10MG/1ML VIAL INJ IV SCH (10:00)
[2020-08-19] MEDS: FUROSEMIDE 20 MG/2 ML VIAL IV SCH (10:00)
[2020-08-19] MEDS: ENOXAPARIN SOD 40 MG/0.4 ML SYRINGE SC SCH (10:00)
[2020-08-19] MEDS: AZITHROMYCIN 500MG/D5WorNS 250ml IV SCH (10:00)
[2020-08-19] MEDS: ALBUTEROL SULF HFA 90MCG INH 200DOSE IN PRN ×2 (10:10→18:49)
[2020-08-19 11:12] LABS: Hematocrit 38.7 % (36.0-46.0); Hemoglobin 12.4 g/dL (12.2-16.2); Mean Corpuscular Hemoglobin 24.9 pg (28.0-32.0); Mean Corpuscular Hgb Conc. 31.9 g/dL (32.0-36.0); Mean Corpuscular Volume 77.9 fL (80.0-100.0); Platelet Count (auto) 277 10^3/uL (140-450); Red Blood Cells 4.97 10^6/uL (4.0-5.20); Red Cell Distribution Width 15.1 % (11.8-14.3); White Blood Cell 5.1 10^3/uL (4.4-10.8)
[2020-08-19 11:19] LABS: Band Neutrophils % (manual) 0; Basophils % (manual) 0 (0.0-2.0); Blast Cells 0; Eosinophils % (manual) 0 (0-7); Metamyelocytes % 0; Myelocytes % 0; Promyelocytes % 0; Reactive Lymphocytes 0
[2020-08-19 11:31] LABS: Albumin 2.1 g/dL (3.4-5.0); Calcium 9.1 mg/dL (8.5-10.1); Magnesium 2.5 mg/dL (1.6-2.6); Potassium 3.9 mmol/L (3.5-5.1)
[2020-08-19 11:33] LABS: BUN/Creatinine Ratio 22.7; Bilirubin, Total 0.5 mg/dL (0.2-1.0)
[2020-08-19 11:40] LABS: Lymphocytes % (manual) 18 (10.0-50.0); Monocytes % (manual) 20 (0-12)
[2020-08-19] MEDS: REMDESIVIR 100 MG in SODIUM CHL 0.9% 250 ML IV SCH (15:46)
[2020-08-20] VITALS (8 sets, daily range): BP systolic 128–163; BP diastolic 64–91
[2020-08-20] MEDS: hydrALAZINE HCL 20 MG/ML VL IV PRN (05:05)
[2020-08-20] MEDS: MORPHINE SULF INJ 2 MG/ML SYRINGE 1ML IV PRN (05:05)
[2020-08-20 07:34] LABS: Albumin 2.4 g/dL (3.4-5.0); BUN/Creatinine Ratio 26.5; Basophils # (auto) 0 10 ^3/uL (0-0.2); Basophils % (auto) 0.1 % (0.0-2.0); Calcium 9.2 mg/dL (8.5-10.1); Eosinophils # (auto) 0 10 ^3/uL (0-0.8); Hemoglobin 12.9 g/dL (12.2-16.2); Lymphocytes # (auto) 1.1 10 ^3/uL (0.4-5.4); Magnesium 2.5 mg/dL (1.6-2.6); Nucleated Red Blood Cells % 0.1 %; Potassium 4.2 mmol/L (3.5-5.1)
[2020-08-20 07:35] LABS: Hematocrit 40.3 % (36.0-46.0); Lymphocytes % (auto) 9.5 % (10.0-50.0); Mean Corpuscular Volume 78.2 fL (80.0-100.0); Monocytes # (auto) 1.5 10 ^3/uL (0-1.3); Monocytes % (auto) 13.6 % (0.0-12.0); Neutrophils # (auto) 8.5 10 ^3/uL (1.6-8.6); Neutrophils % (auto) 76.8 % (37.0-80.0); Platelet Count (auto) 320 10^3/uL (140-450); Red Blood Cells 5.15 10^6/uL (4.0-5.20); Red Cell Distribution Width 15.3 % (11.8-14.3); White Blood Cell 11.1 10^3/uL (4.4-10.8)
[2020-08-20 07:37] LABS: Bilirubin, Total 0.6 mg/dL (0.2-1.0); Total Protein 8.4 g/dL (6.4-8.2)
[2020-08-20] MEDS: ALBUTEROL SULF HFA 90MCG INH 200DOSE IN PRN ×2 (08:43→21:43)
[2020-08-20] MEDS: FUROSEMIDE 20 MG/2 ML VIAL IV SCH (11:26)
[2020-08-20] MEDS: AZITHROMYCIN 500MG/D5WorNS 250ml IV SCH (11:26)
[2020-08-20] MEDS: DexAMETHasone SOD PHOS 10MG/1ML VIAL INJ IV SCH (11:26)
[2020-08-20] MEDS: cefTRIAXone 1GM/50ML D5W 50 ML IV SCH (11:26)
[2020-08-20] MEDS: FAMOTIDINE 20 MG TAB PO SCH (11:27)
[2020-08-20] MEDS: CARVEDILOL 3.125 MG TAB PO SCH ×2 (11:27→22:00)
[2020-08-20] MEDS: ZINC SULFATE 220mg CAP or TAB PO SCH (11:27)
[2020-08-20] MEDS: CHOLECALCIFEROL (VITD3) 2,000 UNIT CAP PO SCH (11:28)
[2020-08-20] MEDS: ENOXAPARIN SOD 40 MG/0.4 ML SYRINGE SC SCH (11:28)
[2020-08-20] MEDS: ASCORBIC ACID 1,000 MG TAB PO SCH (11:28)
[2020-08-20] MEDS: ACETAMINOPHEN 500 MG TAB PO PRN (12:14)
[2020-08-20] MEDS: REMDESIVIR 100 MG in SODIUM CHL 0.9% 250 ML IV SCH (15:43)
[2020-08-20] MEDS ORDERED: PPN PER PHARMACY 0 ML IV SCH (17:30)
[2020-08-20] MEDS ORDERED: DEXTROSE (50%) 50ML SYRG IV PRN (17:45)
[2020-08-20] MEDS ORDERED: CLINIMIX PER PHARMACY IV NR (20:00)
[2020-08-20] MEDS: ACCU-CHEK COMFORT CURVE STRIP VI SCH (22:00)
[2020-08-20] MEDS ORDERED: InsuLIN REG 1unit/0.01ml Soln (100units/ml) SC SCH (22:00)
[2020-08-21] MEDS: hydrALAZINE HCL 20 MG/ML VL IV PRN ×2 (04:53→23:42)
[2020-08-21 05:00] VITALS: BP 168/85
[2020-08-21] MEDS: ACCU-CHEK COMFORT CURVE STRIP VI SCH ×4 (06:21→23:37)
[2020-08-21 06:30] VITALS: BP 146/79
[2020-08-21] MEDS ORDERED: InsuLIN REG 1unit/0.01ml Soln (100units/ml) SC SCH ×2 (07:00→22:00)
[2020-08-21 07:27] LABS: Eosinophils # (auto) 0 10 ^3/uL (0-0.8); Hemoglobin 12.8 g/dL (12.2-16.2); Lymphocytes % (auto) 10.3 % (10.0-50.0); Monocytes # (auto) 1.6 10 ^3/uL (0-1.3); Monocytes % (auto) 16.7 % (0.0-12.0)
[2020-08-21 07:30] LABS: Basophils # (auto) 0 10 ^3/uL (0-0.2); Basophils % (auto) 0.4 % (0.0-2.0); Mean Corpuscular Hemoglobin 24.7 pg (28.0-32.0); Mean Corpuscular Hgb Conc. 31.3 g/dL (32.0-36.0); Mean Corpuscular Volume 79.1 fL (80.0-100.0); Neutrophils # (auto) 7.1 10 ^3/uL (1.6-8.6); Neutrophils % (auto) 72.6 % (37.0-80.0); Nucleated Red Blood Cells % 0.1 %; Platelet Count (auto) 344 10^3/uL (140-450); Red Blood Cells 5.19 10^6/uL (4.0-5.20); Red Cell Distribution Width 15.4 % (11.8-14.3); White Blood Cell 9.8 10^3/uL (4.4-10.8)
[2020-08-21 07:44] LABS: Albumin 2.4 g/dL (3.4-5.0); BUN/Creatinine Ratio 29.6; Bilirubin, Total 0.6 mg/dL (0.2-1.0); CRP High Sensitivity 5.11 mg/dL (< 0.3); Calcium 9.4 mg/dL (8.5-10.1); Magnesium 2.8 mg/dL (1.6-2.6); Phosphorus 2.3 mg/dL (2.5-4.90); Pre Albumin 11.8 mg/dL (20.0-40.0); Total Protein 8.6 g/dL (6.4-8.2)
[2020-08-21 08:00] VITALS: BP 155/78
[2020-08-21] MEDS: cefTRIAXone 1GM/50ML D5W 50 ML IV SCH (09:00)
[2020-08-21] MEDS: FAMOTIDINE 20 MG TAB PO SCH (10:00)
[2020-08-21] MEDS: CHOLECALCIFEROL (VITD3) 2,000 UNIT CAP PO SCH (10:00)
[2020-08-21] MEDS: ZINC SULFATE 220mg CAP or TAB PO SCH (10:00)
[2020-08-21] MEDS: ASCORBIC ACID 1,000 MG TAB PO SCH (10:00)
[2020-08-21] MEDS ORDERED: TPN PER PHARMACY 0 ML IV SCH (11:00)
[2020-08-21] MEDS: DexAMETHasone SOD PHOS 10MG/1ML VIAL INJ IV SCH (11:23)
[2020-08-21] MEDS: ENOXAPARIN SOD 40 MG/0.4 ML SYRINGE SC SCH (11:24)
[2020-08-21] MEDS: AZITHROMYCIN 500MG/D5WorNS 250ml IV SCH (11:24)
[2020-08-21] MEDS: CARVEDILOL 3.125 MG TAB PO SCH ×2 (11:29→21:49)
[2020-08-21] MEDS ORDERED: DEXTROSE (50%) 50ML SYRG IV SCH (12:00)
[2020-08-21] MEDS: FUROSEMIDE 20 MG/2 ML VIAL IV SCH (12:01)
[2020-08-21] MEDS: InsuLIN REG 1unit/0.01ml Soln (100units/ml) SC SCH ×3 (12:26→23:40)
[2020-08-21] MEDS: ALBUTEROL SULF HFA 90MCG INH 200DOSE IN PRN ×2 (14:25→23:37)
[2020-08-21] MEDS: REMDESIVIR 100 MG in SODIUM CHL 0.9% 250 ML IV SCH (15:27)
[2020-08-21 17:19] VITALS: BP 162/79
[2020-08-21] MEDS ORDERED: TPN PER PHARMACY IV NR ×9 (20:00)
[2020-08-21] MEDS: AMINO ACID INFUSION IN D10W 1,000 ML IV NR (20:11)
[2020-08-22] VITALS (7 sets, daily range): BP systolic 147–167; BP diastolic 72–115
[2020-08-22] MEDS: InsuLIN REG 1unit/0.01ml Soln (100units/ml) SC SCH ×4 (06:35→23:55)
[2020-08-22] MEDS: ACCU-CHEK COMFORT CURVE STRIP VI SCH ×4 (06:35→23:56)
[2020-08-22] MEDS: cefTRIAXone 1GM/50ML D5W 50 ML IV SCH (09:00)
[2020-08-22] MEDS: FUROSEMIDE 20 MG/2 ML VIAL IV SCH (10:00)
[2020-08-22] MEDS: DexAMETHasone SOD PHOS 10MG/1ML VIAL INJ IV SCH (10:00)
[2020-08-22] MEDS: FAMOTIDINE 20 MG TAB PO SCH (10:00)
[2020-08-22] MEDS: AZITHROMYCIN 500MG/D5WorNS 250ml IV SCH (10:00)
[2020-08-22] MEDS: ENOXAPARIN SOD 40 MG/0.4 ML SYRINGE SC SCH (10:00)
[2020-08-22] MEDS: CARVEDILOL 3.125 MG TAB PO SCH ×2 (10:00→21:47)
[2020-08-22] MEDS: CHOLECALCIFEROL (VITD3) 2,000 UNIT CAP PO SCH (10:00)
[2020-08-22] MEDS: ASCORBIC ACID 1,000 MG TAB PO SCH (10:00)
[2020-08-22] MEDS: ZINC SULFATE 220mg CAP or TAB PO SCH (10:00)
[2020-08-22] MEDS: HYDROcodone-ACET 5/325MG TAB PO PRN ×2 (12:09→20:25)
[2020-08-22] MEDS ORDERED: cloNIDine 0.2 mg/24hr 7DAY PATCH TD SCH (15:00)
[2020-08-22] MEDS ORDERED: HALOPERIDOL LACTATE 5 MG/ML INJ VIAL IM PRN (15:00)
[2020-08-22] MEDS: AMINO ACID INFUSION IN D10W 1,000 ML IV NR (19:49)
[2020-08-22] MEDS: ALBUTEROL SULF HFA 90MCG INH 200DOSE IN PRN ×2 (20:33→20:59)
[2020-08-22] MEDS ORDERED: AMINO ACID INFUSION IN D10W 1,000 ML IV NR (21:00)
[2020-08-22] MEDS: hydrALAZINE HCL 20 MG/ML VL IV PRN (23:56)
[2020-08-23 05:00] VITALS: BP_SYST 120; BP_SYST 181; BP_DIAS 111; BP_DIAS 51
[2020-08-23] MEDS: hydrALAZINE HCL 20 MG/ML VL IV PRN (05:20)
[2020-08-23 06:50] VITALS: BP 166/85
[2020-08-23] MEDS: InsuLIN REG 1unit/0.01ml Soln (100units/ml) SC SCH ×4 (06:55→23:38)
[2020-08-23] MEDS: ACCU-CHEK COMFORT CURVE STRIP VI SCH ×4 (06:55→23:28)
[2020-08-23] MEDS: HYDROcodone-ACET 5/325MG TAB PO PRN (07:06)
[2020-08-23] MEDS ORDERED: hydrALAZINE HCL 25 MG TAB PO PRN (07:30)
[2020-08-23 09:00] VITALS: BP 212/104
[2020-08-23] MEDS: cefTRIAXone 1GM/50ML D5W 50 ML IV SCH (09:00)
[2020-08-23] MEDS: FUROSEMIDE 20 MG/2 ML VIAL IV SCH (10:00)
[2020-08-23] MEDS: DexAMETHasone SOD PHOS 10MG/1ML VIAL INJ IV SCH (10:00)
[2020-08-23] MEDS: CHOLECALCIFEROL (VITD3) 2,000 UNIT CAP PO SCH (10:04)
[2020-08-23] MEDS: ZINC SULFATE 220mg CAP or TAB PO SCH (10:04)
[2020-08-23] MEDS: ASCORBIC ACID 1,000 MG TAB PO SCH (10:04)
[2020-08-23] MEDS: FAMOTIDINE 20 MG TAB PO SCH (10:04)
[2020-08-23] MEDS: ENOXAPARIN SOD 40 MG/0.4 ML SYRINGE SC SCH (10:05)
[2020-08-23] MEDS: CARVEDILOL 3.125 MG TAB PO SCH ×3 (10:05→22:45)
[2020-08-23 13:00] VITALS: BP 163/104
[2020-08-23] MEDS: cloNIDine 0.2 mg/24hr 7DAY PATCH TD SCH (15:00)
[2020-08-23] MEDS: HALOPERIDOL LACTATE 5 MG/ML INJ VIAL IM PRN (15:11)
[2020-08-23 17:00] VITALS: BP 189/100
[2020-08-23] MEDS ORDERED: hydrALAZINE HCL 20 MG/ML VL IM PRN (20:00)
[2020-08-23] MEDS ORDERED: hydrALAZINE HCL 20 MG/ML VL IM ONE (20:00)
[2020-08-23] MEDS ORDERED: LORazepam 2MG/ML-1ML VIAL IM ONE (20:15)
[2020-08-23] MEDS: DOXYCYCLINE 100 MG TAB/CAP PO SCH (21:31)
[2020-08-23 21:48] VITALS: BP 164/92
[2020-08-23] MEDS: ALBUTEROL SULF HFA 90MCG INH 200DOSE IN PRN (23:17)
[2020-08-24] MEDS: HALOPERIDOL LACTATE 5 MG/ML INJ VIAL IM PRN ×4 (00:04→14:07)
[2020-08-24] MEDS: ACETAMINOPHEN 500 MG TAB PO PRN ×2 (04:55→21:51)
[2020-08-24 05:35] VITALS: BP 149/85
[2020-08-24] MEDS: ACCU-CHEK COMFORT CURVE STRIP VI SCH ×3 (06:12→18:31)
[2020-08-24] MEDS: InsuLIN REG 1unit/0.01ml Soln (100units/ml) SC SCH ×3 (06:28→18:31)
[2020-08-24 09:00] VITALS: BP 112/67
[2020-08-24] MEDS: FAMOTIDINE 20 MG TAB PO SCH (10:27)
[2020-08-24] MEDS: NIFEdipine ER 30 MG TAB PO SCH (10:27)
[2020-08-24] MEDS: CHOLECALCIFEROL (VITD3) 2,000 UNIT CAP PO SCH (10:27)
[2020-08-24] MEDS: ASCORBIC ACID 1,000 MG TAB PO SCH (10:27)
[2020-08-24] MEDS: CARVEDILOL 3.125 MG TAB PO SCH ×2 (10:28→21:50)
[2020-08-24] MEDS: FUROSEMIDE 20 MG TAB PO SCH (10:28)
[2020-08-24] MEDS: ZINC SULFATE 220mg CAP or TAB PO SCH (10:28)
[2020-08-24] MEDS: DOXYCYCLINE 100 MG TAB/CAP PO SCH ×2 (10:28→21:50)
[2020-08-24] MEDS: DexAMETHasone 4 MG TAB PO SCH (10:29)
[2020-08-24] MEDS: ENOXAPARIN SOD 40 MG/0.4 ML SYRINGE SC SCH (11:33)
[2020-08-24 12:52] VITALS: BP 148/69
[2020-08-24 17:00] VITALS: BP 146/79
[2020-08-24 22:00] VITALS: BP 139/77
[2020-08-24] MEDS: ALBUTEROL SULF HFA 90MCG INH 200DOSE IN PRN (22:56)
[2020-08-25] MEDS: ACCU-CHEK COMFORT CURVE STRIP VI SCH ×4 (00:24→17:30)
[2020-08-25] MEDS: InsuLIN REG 1unit/0.01ml Soln (100units/ml) SC SCH ×4 (00:25→17:30)
[2020-08-25] MEDS: HYDROcodone-ACET 5/325MG TAB PO PRN ×3 (01:40→23:00)
[2020-08-25] MEDS: HALOPERIDOL LACTATE 5 MG/ML INJ VIAL IM PRN ×2 (04:45→11:38)
[2020-08-25 05:00] VITALS: BP 127/82
[2020-08-25] MEDS: ACETAMINOPHEN 500 MG TAB PO PRN (06:40)
[2020-08-25 09:00] VITALS: BP 130/66
[2020-08-25] MEDS: FAMOTIDINE 20 MG TAB PO SCH (09:05)
[2020-08-25] MEDS: CHOLECALCIFEROL (VITD3) 2,000 UNIT CAP PO SCH (09:05)
[2020-08-25] MEDS: ZINC SULFATE 220mg CAP or TAB PO SCH (09:05)
[2020-08-25] MEDS: DexAMETHasone 4 MG TAB PO SCH (09:07)
[2020-08-25] MEDS: DOXYCYCLINE 100 MG TAB/CAP PO SCH ×2 (09:07→21:56)
[2020-08-25] MEDS: ASCORBIC ACID 1,000 MG TAB PO SCH (09:07)
[2020-08-25] MEDS: ENOXAPARIN SOD 40 MG/0.4 ML SYRINGE SC SCH (09:08)
[2020-08-25] MEDS: CARVEDILOL 3.125 MG TAB PO SCH ×2 (09:53→21:56)
[2020-08-25] MEDS: FUROSEMIDE 20 MG TAB PO SCH (09:54)
[2020-08-25] MEDS: NIFEdipine ER 30 MG TAB PO SCH (09:54)
[2020-08-25] MEDS: ALBUTEROL SULF HFA 90MCG INH 200DOSE IN PRN (11:12)
[2020-08-25 13:00] VITALS: BP 117/78
[2020-08-25 17:41] VITALS: BP 126/70
[2020-08-25 21:38] VITALS: BP 110/77
[2020-08-26] MEDS: ACCU-CHEK COMFORT CURVE STRIP VI SCH ×5 (01:38→23:58)
[2020-08-26] MEDS: InsuLIN REG 1unit/0.01ml Soln (100units/ml) SC SCH ×4 (01:39→18:24)
[2020-08-26] MEDS: ALBUTEROL SULF HFA 90MCG INH 200DOSE IN PRN ×3 (03:33→22:24)
[2020-08-26 04:47] VITALS: BP 115/53
[2020-08-26] MEDS: HYDROcodone-ACET 5/325MG TAB PO PRN ×3 (05:00→18:19)
[2020-08-26 06:49] LABS: Basophils # (auto) 0 10 ^3/uL (0-0.2); Eosinophils # (auto) 0 10 ^3/uL (0-0.8); Mean Corpuscular Volume 79.1 fL (80.0-100.0); Monocytes # (auto) 1.3 10 ^3/uL (0-1.3)
[2020-08-26 06:52] LABS: Basophils % (auto) 0.1 % (0.0-2.0); Hematocrit 39.3 % (36.0-46.0); Hemoglobin 12.2 g/dL (12.2-16.2); Lymphocytes # (auto) 0.9 10 ^3/uL (0.4-5.4); Lymphocytes % (auto) 6.4 % (10.0-50.0); Mean Corpuscular Hemoglobin 24.7 pg (28.0-32.0); Mean Corpuscular Hgb Conc. 31.2 g/dL (32.0-36.0); Monocytes % (auto) 9.4 % (0.0-12.0); Neutrophils # (auto) 11.6 10 ^3/uL (1.6-8.6); Neutrophils % (auto) 84.1 % (37.0-80.0); Platelet Count (auto) 243 10^3/uL (140-450); Red Blood Cells 4.96 10^6/uL (4.0-5.20); Red Cell Distribution Width 15.3 % (11.8-14.3); White Blood Cell 13.8 10^3/uL (4.4-10.8)
[2020-08-26 07:06] LABS: INR 1.26 (0.9-1.15); Partial Thromboplastin Time 26.6 sec (23.0-31.2)
[2020-08-26 07:08] LABS: Potassium 3.7 mmol/L (3.5-5.1)
[2020-08-26 07:18] LABS: BUN/Creatinine Ratio 30.3; Bilirubin, Total 0.9 mg/dL (0.2-1.0); Calcium 9.7 mg/dL (8.5-10.1); Total Protein 8.2 g/dL (6.4-8.2)
[2020-08-26 08:42] LABS: CRP High Sensitivity 10.2 mg/dL (< 0.3)
[2020-08-26 08:52] VITALS: BP 136/81
[2020-08-26] MEDS: NIFEdipine ER 30 MG TAB PO SCH (11:13)
[2020-08-26] MEDS: CHOLECALCIFEROL (VITD3) 2,000 UNIT CAP PO SCH (11:14)
[2020-08-26] MEDS: ZINC SULFATE 220mg CAP or TAB PO SCH (11:15)
[2020-08-26] MEDS: ASCORBIC ACID 1,000 MG TAB PO SCH (11:16)
[2020-08-26] MEDS: DexAMETHasone 4 MG TAB PO SCH (11:16)
[2020-08-26] MEDS: DOXYCYCLINE 100 MG TAB/CAP PO SCH ×2 (11:16→22:14)
[2020-08-26] MEDS: FAMOTIDINE 20 MG TAB PO SCH (11:16)
[2020-08-26] MEDS: FUROSEMIDE 20 MG TAB PO SCH (11:17)
[2020-08-26] MEDS: CARVEDILOL 3.125 MG TAB PO SCH ×2 (11:17→22:14)
[2020-08-26] MEDS: ENOXAPARIN SOD 40 MG/0.4 ML SYRINGE SC SCH (11:17)
[2020-08-26] MEDS: SODIUM CHLORIDE 0.9% 1,000 ML IV SCH ×2 (12:46→21:30)
[2020-08-26 17:00] VITALS: BP 116/74
[2020-08-26 22:00] VITALS: BP 104/54
[2020-08-26] MEDS: HALOPERIDOL LACTATE 5 MG/ML INJ VIAL IM PRN (22:15)
[2020-08-27] MEDS: InsuLIN REG 1unit/0.01ml Soln (100units/ml) SC SCH ×5 (00:21→23:12)
[2020-08-27] MEDS: HYDROcodone-ACET 5/325MG TAB PO PRN ×3 (02:40→14:29)
[2020-08-27 05:00] VITALS: BP 125/67
[2020-08-27] MEDS: ACCU-CHEK COMFORT CURVE STRIP VI SCH ×4 (05:58→23:00)
[2020-08-27] MEDS: SODIUM CHLORIDE 0.9% 1,000 ML IV SCH ×2 (07:30→16:36)
[2020-08-27 08:14] LABS: Potassium 3.5 mmol/L (3.5-5.1)
[2020-08-27 08:20] LABS: BUN/Creatinine Ratio 40.5; Calcium 10.1 mg/dL (8.5-10.1)
[2020-08-27] MEDS: NIFEdipine ER 30 MG TAB PO SCH (08:30)
[2020-08-27] MEDS: CARVEDILOL 3.125 MG TAB PO SCH ×2 (08:32→23:00)
[2020-08-27] MEDS: DexAMETHasone 4 MG TAB PO SCH (08:32)
[2020-08-27] MEDS: DOXYCYCLINE 100 MG TAB/CAP PO SCH ×2 (08:32→23:00)
[2020-08-27] MEDS: CHOLECALCIFEROL (VITD3) 2,000 UNIT CAP PO SCH (08:33)
[2020-08-27] MEDS: ZINC SULFATE 220mg CAP or TAB PO SCH (08:33)
[2020-08-27] MEDS: ASCORBIC ACID 1,000 MG TAB PO SCH (08:33)
[2020-08-27] MEDS: ENOXAPARIN SOD 40 MG/0.4 ML SYRINGE SC SCH (08:34)
[2020-08-27] MEDS: FUROSEMIDE 20 MG TAB PO SCH (08:34)
[2020-08-27] MEDS: FAMOTIDINE 20 MG TAB PO SCH (08:38)
[2020-08-27 09:00] VITALS: BP 106/73
[2020-08-27 13:00] VITALS: BP 127/68
[2020-08-27 17:00] VITALS: BP 112/59
[2020-08-27] MEDS: ACETAMINOPHEN 500 MG TAB PO PRN (18:57)
[2020-08-27 22:00] VITALS: BP 130/68
[2020-08-27] MEDS: MORPHINE SULF INJ 2 MG/ML SYRINGE 1ML IV PRN (23:00)
[2020-08-28] MEDS: ALBUTEROL SULF HFA 90MCG INH 200DOSE IN PRN ×3 (01:19→20:13)
[2020-08-28] MEDS: HYDROcodone-ACET 5/325MG TAB PO PRN ×3 (02:21→14:23)
[2020-08-28] MEDS: SODIUM CHLORIDE 0.9% 1,000 ML IV SCH ×3 (03:30→23:32)
[2020-08-28 05:00] VITALS: BP 120/69
[2020-08-28] MEDS: ACCU-CHEK COMFORT CURVE STRIP VI SCH ×4 (06:53→23:57)
[2020-08-28] MEDS: InsuLIN REG 1unit/0.01ml Soln (100units/ml) SC SCH ×4 (06:59→23:56)
[2020-08-28 08:48] LABS: Eosinophils # (auto) 0 10 ^3/uL (0-0.8); Hemoglobin 14.2 g/dL (12.2-16.2); Mean Corpuscular Hgb Conc. 30.5 g/dL (32.0-36.0); Neutrophils # (auto) 10.3 10 ^3/uL (1.6-8.6)
[2020-08-28 08:51] LABS: Basophils # (auto) 0 10 ^3/uL (0-0.2); Basophils % (auto) 0.1 % (0.0-2.0); Eosinophils % (auto) 0.1 % (0.0-7.0); Hematocrit 46.6 % (36.0-46.0); Lymphocytes # (auto) 1.3 10 ^3/uL (0.4-5.4); Lymphocytes % (auto) 9.5 % (10.0-50.0); Mean Corpuscular Hemoglobin 24.5 pg (28.0-32.0); Mean Corpuscular Volume 80.4 fL (80.0-100.0); Monocytes % (auto) 14.6 % (0.0-12.0); Neutrophils % (auto) 75.7 % (37.0-80.0); Platelet Count (auto) 293 10^3/uL (140-450); Red Blood Cells 5.79 10^6/uL (4.0-5.20); Red Cell Distribution Width 15.6 % (11.8-14.3); White Blood Cell 13.5 10^3/uL (4.4-10.8)
[2020-08-28 09:00] VITALS: BP 129/68
[2020-08-28 09:04] LABS: Alkaline Phosphatase 110 U/L (45-117); Anion Gap 10 (5-15); BUN/Creatinine Ratio 40.5; Blood Urea Nitrogen 70 mg/dL (7-18); Carbon Dioxide 22 mmol/L (21-32); Chloride 100 mmol/L (98-107); GFR African American 39 mL/min; GFR Non-African American 32 mL/min; Glucose 265 mg/dL (74-106); Potassium 3.8 mmol/L (3.5-5.1); Sodium 132 mmol/L (136-145)
[2020-08-28 09:05] LABS: Alanine Aminotransferase 25 U/L (13-56); Albumin 2.3 g/dL (3.4-5.0); Aspartate Aminotransferase 15 U/L (15-37); Bilirubin, Total 0.9 mg/dL (0.2-1.0); Calcium 9.9 mg/dL (8.5-10.1); Total Protein 9.1 g/dL (6.4-8.2)
[2020-08-28 09:19] LABS: CRP High Sensitivity 2.93 mg/dL (< 0.3)
[2020-08-28] MEDS: ENOXAPARIN SOD 40 MG/0.4 ML SYRINGE SC SCH (10:01)
[2020-08-28] MEDS: NIFEdipine ER 30 MG TAB PO SCH (10:01)
[2020-08-28] MEDS: FAMOTIDINE 20 MG TAB PO SCH (10:02)
[2020-08-28] MEDS: CARVEDILOL 3.125 MG TAB PO SCH ×2 (10:02→23:31)
[2020-08-28] MEDS: DOXYCYCLINE 100 MG TAB/CAP PO SCH ×2 (10:02→23:32)
[2020-08-28] MEDS: HALOPERIDOL LACTATE 5 MG/ML INJ VIAL IM PRN (10:03)
[2020-08-28] MEDS: DexAMETHasone 4 MG TAB PO SCH (10:15)
[2020-08-28 13:00] VITALS: BP 147/84
[2020-08-28 17:00] VITALS: BP 138/71
[2020-08-28 21:49] VITALS: BP 118/69
[2020-08-28] MEDS ORDERED: INSULIN LANTUS (GLARGINE) 1 /0.01ml (100units/ml) SC SCH (22:00)
[2020-08-28] MEDS ORDERED: ENOXAPARIN SOD 40 MG/0.4 ML SYRINGE SC SCH (22:00)
[2020-08-28] MEDS: ATORVASTATIN 20 MG TAB PO SCH (23:32)
[2020-08-28] MEDS: INSULIN LANTUS (GLARGINE) 1 /0.01ml (100units/ml) SC SCH (23:56)
[2020-08-29] MEDS: HYDROcodone-ACET 5/325MG TAB PO PRN (02:49)
[2020-08-29 04:00] VITALS: BP 113/64
[2020-08-29] MEDS: ACCU-CHEK COMFORT CURVE STRIP VI SCH ×4 (06:00→23:28)
[2020-08-29] MEDS: InsuLIN REG 1unit/0.01ml Soln (100units/ml) SC SCH ×4 (06:39→23:28)
[2020-08-29 09:00] VITALS: BP 112/66
[2020-08-29 09:06] LABS: Basophils # (auto) 0.1 10 ^3/uL (0-0.2); Basophils % (auto) 0.4 % (0.0-2.0); Eosinophils # (auto) 0 10 ^3/uL (0-0.8); Eosinophils % (auto) 0.2 % (0.0-7.0); Lymphocytes # (auto) 1.3 10 ^3/uL (0.4-5.4); Red Cell Distribution Width 15.7 % (11.8-14.3)
[2020-08-29 09:08] LABS: Hematocrit 43.4 % (36.0-46.0); Hemoglobin 13.6 g/dL (12.2-16.2); Lymphocytes % (auto) 8.8 % (10.0-50.0); Mean Corpuscular Hemoglobin 24.7 pg (28.0-32.0); Mean Corpuscular Hgb Conc. 31.3 g/dL (32.0-36.0); Monocytes % (auto) 13.2 % (0.0-12.0); Neutrophils # (auto) 11.8 10 ^3/uL (1.6-8.6); Neutrophils % (auto) 77.4 % (37.0-80.0); Platelet Count (auto) 247 10^3/uL (140-450); Red Blood Cells 5.49 10^6/uL (4.0-5.20); White Blood Cell 15.3 10^3/uL (4.4-10.8)
[2020-08-29 09:20] LABS: BUN/Creatinine Ratio 41.4; Potassium 3.8 mmol/L (3.5-5.1)
[2020-08-29] MEDS: ALBUTEROL SULF HFA 90MCG INH 200DOSE IN PRN (10:01)
[2020-08-29] MEDS: ASPirin 81 mg TAB PO SCH (10:22)
[2020-08-29] MEDS: DOXYCYCLINE 100 MG TAB/CAP PO SCH (10:22)
[2020-08-29] MEDS: PANTOPRAZOLE 40 MG/10 ML VIAL INJ IV SCH (10:23)
[2020-08-29] MEDS: CARVEDILOL 3.125 MG TAB PO SCH ×2 (10:23→23:22)
[2020-08-29] MEDS: NIFEdipine ER 30 MG TAB PO SCH (10:24)
[2020-08-29] MEDS: ENOXAPARIN SOD 40 MG/0.4 ML SYRINGE SC SCH (10:25)
[2020-08-29] MEDS: DexAMETHasone 4 MG TAB PO SCH (10:26)
[2020-08-29] MEDS: SODIUM CHLORIDE 0.9% 1,000 ML IV SCH ×2 (10:45→20:56)
[2020-08-29 13:00] VITALS: BP 122/76
[2020-08-29] MEDS: MEROPENEM 1GM IVPB 100 ML IV SCH ×2 (14:00→22:00)
[2020-08-29] MEDS: MORPHINE SULF INJ 2 MG/ML SYRINGE 1ML IV PRN ×2 (14:52→21:13)
[2020-08-29] MEDS: ALPRAZolam 0.25 MG TAB PO PRN (15:28)
[2020-08-29 17:00] VITALS: BP 117/76
[2020-08-29] MEDS: ATORVASTATIN 20 MG TAB PO SCH (23:22)
[2020-08-29] MEDS: INSULIN LANTUS (GLARGINE) 1 /0.01ml (100units/ml) SC SCH (23:26)
[2020-08-30] VITALS: BP 145/73
[2020-08-30] MEDS: SODIUM CHLORIDE 0.9% 1,000 ML IV SCH (05:02)
[2020-08-30] MEDS: ALBUTEROL SULF HFA 90MCG INH 200DOSE IN PRN (05:02)
[2020-08-30] MEDS: ACCU-CHEK COMFORT CURVE STRIP VI SCH ×3 (05:53→18:00)
[2020-08-30] MEDS: InsuLIN REG 1unit/0.01ml Soln (100units/ml) SC SCH ×3 (05:53→18:36)
[2020-08-30] MEDS: MEROPENEM 1GM IVPB 100 ML IV SCH ×3 (05:54→21:59)
[2020-08-30 06:50] LABS: Eosinophils # (auto) 0 10 ^3/uL (0-0.8); Lymphocytes # (auto) 1.4 10 ^3/uL (0.4-5.4); Neutrophils % (auto) 79.1 % (37.0-80.0); Red Cell Distribution Width 15.6 % (11.8-14.3)
[2020-08-30 06:57] LABS: Basophils # (auto) 0 10 ^3/uL (0-0.2); Basophils % (auto) 0.2 % (0.0-2.0); Hematocrit 42.2 % (36.0-46.0); Hemoglobin 13.4 g/dL (12.2-16.2); Lymphocytes % (auto) 8.3 % (10.0-50.0); Mean Corpuscular Hemoglobin 25.1 pg (28.0-32.0); Mean Corpuscular Hgb Conc. 31.7 g/dL (32.0-36.0); Monocytes # (auto) 2.1 10 ^3/uL (0-1.3); Monocytes % (auto) 12.4 % (0.0-12.0); Neutrophils # (auto) 13.6 10 ^3/uL (1.6-8.6); Nucleated Red Blood Cells % 0.1 %; Platelet Count (auto) 275 10^3/uL (140-450); Red Blood Cells 5.33 10^6/uL (4.0-5.20); White Blood Cell 17.2 10^3/uL (4.4-10.8)
[2020-08-30 07:05] LABS: Potassium 4.3 mmol/L (3.5-5.1)
[2020-08-30 07:34] LABS: BUN/Creatinine Ratio 38.2; Calcium 10.1 mg/dL (8.5-10.1)
[2020-08-30 08:00] VITALS: BP 138/55
[2020-08-30] MEDS: PANTOPRAZOLE 40 MG/10 ML VIAL INJ IV SCH (10:18)
[2020-08-30] MEDS: ASPirin 81 mg TAB PO SCH (10:18)
[2020-08-30] MEDS: CARVEDILOL 3.125 MG TAB PO SCH ×2 (10:20→22:00)
[2020-08-30] MEDS: DexAMETHasone 4 MG TAB PO SCH (10:20)
[2020-08-30] MEDS: NIFEdipine ER 30 MG TAB PO SCH (10:22)
[2020-08-30] MEDS: ENOXAPARIN SOD 40 MG/0.4 ML SYRINGE SC SCH (10:23)
[2020-08-30] MEDS: MORPHINE SULF INJ 2 MG/ML SYRINGE 1ML IV PRN ×2 (11:41→18:18)
[2020-08-30 14:49] VITALS: BP 147/81
[2020-08-30 15:11] LABS: Urine Bacteria FEW /hpf (None Seen); Urine Blood 1+ /uL (Negative); Urine Budding Yeast MANY /hpf (None Seen); Urine Mucus FEW (None Seen); Urine Specific Gravity 1.023 (1.001-1.035); Urine WBC 115 /hpf (0 - 5)
[2020-08-30 16:00] VITALS: BP 143/82
[2020-08-30 22:00] VITALS: BP 152/81
[2020-08-30] MEDS: ALPRAZolam 0.25 MG TAB PO PRN (22:00)
[2020-08-30] MEDS: ATORVASTATIN 20 MG TAB PO SCH (22:00)
[2020-08-30] MEDS: INSULIN LANTUS (GLARGINE) 1 /0.01ml (100units/ml) SC SCH (22:31)
[2020-08-31] MEDS: InsuLIN REG 1unit/0.01ml Soln (100units/ml) SC SCH ×5 (00:45→23:05)
[2020-08-31] MEDS: MORPHINE SULF INJ 2 MG/ML SYRINGE 1ML IV PRN ×4 (00:56→22:37)
[2020-08-31] MEDS: ACCU-CHEK COMFORT CURVE STRIP VI SCH ×5 (06:30→23:00)
[2020-08-31] MEDS: MEROPENEM 1GM IVPB 100 ML IV SCH ×3 (06:31→22:36)
[2020-08-31 09:17] VITALS: BP 143/83
[2020-08-31] MEDS: PANTOPRAZOLE 40 MG/10 ML VIAL INJ IV SCH (12:13)
[2020-08-31] MEDS: DexAMETHasone 4 MG TAB PO SCH (12:13)
[2020-08-31] MEDS: ASPirin 81 mg TAB PO SCH (12:14)
[2020-08-31] MEDS: CARVEDILOL 3.125 MG TAB PO SCH ×2 (12:15→22:37)
[2020-08-31] MEDS: ENOXAPARIN SOD 40 MG/0.4 ML SYRINGE SC SCH (12:15)
[2020-08-31] MEDS: NIFEdipine ER 30 MG TAB PO SCH (12:16)
[2020-08-31 12:36] LABS: Basophils # (auto) 0 10 ^3/uL (0-0.2); Basophils % (auto) 0.2 % (0.0-2.0); Eosinophils # (auto) 0.1 10 ^3/uL (0-0.8); Eosinophils % (auto) 0.3 % (0.0-7.0); Hematocrit 37.3 % (36.0-46.0); Hemoglobin 12.1 g/dL (12.2-16.2); Lymphocytes # (auto) 1.3 10 ^3/uL (0.4-5.4); Lymphocytes % (auto) 6.8 % (10.0-50.0); Mean Corpuscular Hemoglobin 25.5 pg (28.0-32.0); Mean Corpuscular Hgb Conc. 32.5 g/dL (32.0-36.0); Mean Corpuscular Volume 78.5 fL (80.0-100.0); Monocytes # (auto) 2.2 10 ^3/uL (0-1.3); Monocytes % (auto) 11.5 % (0.0-12.0); Neutrophils # (auto) 15.4 10 ^3/uL (1.6-8.6); Neutrophils % (auto) 81.2 % (37.0-80.0); Platelet Count (auto) 266 10^3/uL (140-450); Red Blood Cells 4.76 10^6/uL (4.0-5.20); Red Cell Distribution Width 15.7 % (11.8-14.3); White Blood Cell 18.9 10^3/uL (4.4-10.8)
[2020-08-31 13:00] VITALS: BP 145/88
[2020-08-31 13:20] LABS: Calcium 9.9 mg/dL (8.5-10.1); Potassium 4.3 mmol/L (3.5-5.1)
[2020-08-31 13:23] LABS: BUN/Creatinine Ratio 38.7
[2020-08-31 16:22] VITALS: BP 124/90
[2020-08-31] MEDS: ALBUTEROL SULF HFA 90MCG INH 200DOSE IN PRN (19:57)
[2020-08-31] MEDS: ATORVASTATIN 20 MG TAB PO SCH (22:37)
[2020-08-31] MEDS: INSULIN LANTUS (GLARGINE) 1 /0.01ml (100units/ml) SC SCH (23:04)
[2020-09-01] VITALS: BP 131/70
[2020-09-01] MEDS: ACCU-CHEK COMFORT CURVE STRIP VI SCH ×3 (06:07→17:52)
[2020-09-01] MEDS: InsuLIN REG 1unit/0.01ml Soln (100units/ml) SC SCH ×3 (06:47→18:00)
[2020-09-01] MEDS: MEROPENEM 1GM IVPB 100 ML IV SCH ×2 (06:47→14:00)
[2020-09-01] MEDS: ALPRAZolam 0.25 MG TAB PO PRN (08:31)
[2020-09-01 09:00] VITALS: BP 147/98
[2020-09-01] MEDS: DexAMETHasone 4 MG TAB PO SCH (10:00)
[2020-09-01] MEDS: PANTOPRAZOLE 40 MG/10 ML VIAL INJ IV SCH (10:00)
[2020-09-01] MEDS: ENOXAPARIN SOD 40 MG/0.4 ML SYRINGE SC SCH (10:00)
[2020-09-01] MEDS: NIFEdipine ER 30 MG TAB PO SCH (10:00)
[2020-09-01] MEDS: ASPirin 81 mg TAB PO SCH (10:00)
[2020-09-01] MEDS: CARVEDILOL 3.125 MG TAB PO SCH (10:00)
[2020-09-01] MEDS: cloNIDine 0.2 mg/24hr 7DAY PATCH TD SCH (10:15)
[2020-09-01] MEDS ORDERED: ALPRAZolam 0.25 MG TAB PO PRN (11:45)
[2020-09-01] MEDS ORDERED: MORPHINE SULF INJ 2 MG/ML SYRINGE 1ML IV PRN (11:45)
[2020-09-01] MEDS: HALOPERIDOL LACTATE 5 MG/ML INJ VIAL IM PRN (12:31)
[2020-09-01 17:00] VITALS: BP 126/76
== END 2020-09-01 21:25 | DRG 137 ==
LOC: ER 11:50 → EDBD 11:50 → OVERFLOW 19:29 → TELE-WESTW 08-19 23:39
PROVIDERS: ADMIT Nurse Practitioner Acute Care; ATTEND Internal Medicine
PROC: 06HM33Z Insertion of Infusion Device into Right Femoral Vein, Percutaneous Approach (ICD-10-PCS; principal; 2020-08-17)
PROC: XW033E5 Introduction of Remdesivir Anti-infective into Peripheral Vein, Percutaneous Approach, New Technology Group 5 (ICD-10-PCS; 2020-08-17)
PROC: 5A09357 Assistance with Respiratory Ventilation, Less than 24 Consecutive Hours, Continuous Positive Airway Pressure (ICD-10-PCS; 2020-09-01)
DX: U07.1 COVID-19 (principal); J96.21 Acute and chronic respiratory failure with hypoxia; J12.89 Other viral pneumonia; G93.41 Metabolic encephalopathy; R78.81 Bacteremia; N17.9 Acute kidney failure, unspecified; D68.59 Other primary thrombophilia; E88.09 Other disorders of plasma-protein metabolism, not elsewhere classified; E66.01 Morbid (severe) obesity due to excess calories; I50.9 Heart failure, unspecified; I13.0 Hypertensive heart and chronic kidney disease with heart failure and stage 1 through stage 4 chronic kidney disease, or unspecified chronic kidney disease; Z68.42 Body mass index [BMI] 45.0-49.9, adult; J98.11 Atelectasis; E11.22 Type 2 diabetes mellitus with diabetic chronic kidney disease; E87.6 Hypokalemia; E78.5 Hyperlipidemia, unspecified; J44.1 Chronic obstructive pulmonary disease with (acute) exacerbation; Z66 Do not resuscitate; E86.0 Dehydration; F41.9 Anxiety disorder, unspecified; N18.30 Chronic kidney disease, stage 3 unspecified; J44.0 Chronic obstructive pulmonary disease with (acute) lower respiratory infection; D72.829 Elevated white blood cell count, unspecified; Z79.4 Long term (current) use of insulin; Z79.899 Other long term (current) drug therapy; Z80.3 Family history of malignant neoplasm of breast; Z80.7 Family history of other malignant neoplasms of lymphoid, hematopoietic and related tissues; Z82.49 Family history of ischemic heart disease and other diseases of the circulatory system; Z82.3 Family history of stroke; Z83.3 Family history of diabetes mellitus; Z85.41 Personal history of malignant neoplasm of cervix uteri; Z86.73 Personal history of transient ischemic attack (TIA), and cerebral infarction without residual deficits; Z90.710 Acquired absence of both cervix and uterus
CPT/HCPCS: 36415; 36600; 70450; 71045; 80048; 80053; 81001; 82040; 82728; 82805; 82962; 83036; 83605; 83735; 83880; 84100; 84478; 84484; 85007; 85025; 85027; 85379; 85610; 85730; 86141; 87040; 87086; 87088; 87426; 87804; 93970; 94640; 94660; 96365; 96375; 99291; C9113; G0378; J0696; J1100; J1815; J2185; J2405; J3490